=== PATIENT | male | born 1950 ===

== ENCOUNTER 2021-03-15 20:53 | Emergency (ER) | payer MEDICARE ==
[~2021-03-15 20:53] MED LIST: ADENOSINE 6 MG/2 ML INJ ONE; ATROPINE 0.1% (1 MG/10 ML) CARDIAC SYRINGE ONE; CALCIUM CHLORIDE 1,000 MG/10 ML SDV ONE; DOPamine/D5W 800 MG/250 ML DRIP IV ONE; EPINEPHrine 1 MG/10 ML SYRINGE ONE; NALOXONE 2 MG/2 ML INJ ONE; SODIUM BICARB 8.4% 50 MEQ/50 ML SYRINGE IV ONE
[2021-03-15] MEDS ORDERED: MIDAZOLAM 5 MG/5 ML INJ MDV IV ONE (20:57)
[2021-03-15] MEDS ORDERED: ROCURONIUM 50 MG/5 ML INJ IV ONE ×2 (20:57→21:01)
[2021-03-15] MEDS ORDERED: SODIUM CHLORIDE 0.9% 1000 ML 2,000 ML ONE (20:57)
--- NOTE | 2021-03-15 22:32 | Emergency Department Report ---
ED General Adult HPI - General Stated complaint: UNRESPONSIVE Source: EMS - History of Present Illness Initial comments: Patient presents to the emergency department emergently via EMS. Per EMS they were called to [facility] for patient who was unresponsive. Upon their arrival the patient was found to be cool to touch and was breathing at approximately 6 breaths per minute with a blood pressure systolically in the 70s. Upon arrival to the emergency department the patient was not responsive to verbal or painful stimuli. -: unknown Severity scale (0 -10): 0 Consistency: constant Improves with: none Worsens with: none Associated Symptoms: denies other symptoms Treatments Prior to Arrival: none ED Review of Systems ROS: Stated complaint: UNRESPONSIVE Other details as noted in HPI Comment: Unobtainable due to pts medical conditions ED Physical Exam - General General appearance: obtunded - Head Head exam: Present: atraumatic, normocephalic - Eye Eye exam: Present: normal appearance, other (Pupils dilated without response to direct or indirect lighting) - ENT ENT exam: Present: mucous membranes dry - Neck Neck exam: Present: normal inspection - Respiratory Respiratory exam: Present: other (Patient has decreased breath sounds throughout with a respiratory rate of approximately 6 breaths/min; no gag reflex) - Cardiovascular Cardiovascular Exam: Present: bradycardia - GI/Abdominal GI/Abdominal exam: Present: soft, distended - Extremities Exam Extremities exam: Present: normal inspection, other (Contracture of the left upper scrimmaging) - Neurological Exam Neurological exam: Present: other (Obtunded and not responsive to stimuli including verbal and painful) - Psychiatric Psychiatric exam: Present: other (Not able to assess due to the patient's condition) - Skin Skin exam: Present: warm, dry, intact, normal color - Intubation Sedative: other (none) Paralytic: other (none) Laryngoscope: fiberoptic video scope Size: 4 ET Tube Size: 7.5 Tube Secured Depth (cm): 23 Tube Secured Location: lips Tube Placement Confirmation: visualized tube passing t, equal breath sounds bilat, no breath sounds over epi, confirmation by capnometr Patient Tolerated Procedure: well Intubation Complications: none - IO Right Tibia Consent Obtained: emergent situation IO Instrument Used to Penetrate the Cortex: battery powered IO drill Patient Tolerated Procedure: well, no complications Complications: none ED Medical Decision Making - Lab Data Lab Results 03/15/21 Range/Units 21:07 POC Glucose 142 H (70-105) mg/dL - Medical Decision Making Initially the patient had a bradycardic rhythm and was given atropine with his heart rate increasing to approximately 58 bpm Peripheral IV access was attempted with the final IV been placed into the right EJ At the placement of the patient's EJ pulse was rechecked and the patient was pulseless ACLS protocol followed please see code sheet Time of is 2110 Central line was attempted in the right femoral vein emergently to no avail this was done under ultrasound guidance Contacted the patient's son who was informed of the patient's . The patient's son will come to the ED for visitation Critical care attestation.: If time is entered above; I have spent that time in minutes in the direct care of this critically ill patient, excluding procedure time. ED Disposition Clinical Impression: Cardiac arrest Disposition: 20 Is pt being admited?: No Does the pt Need Aspirin: No Condition: Stable
== END 2021-03-16 03:05 ==
LOC: ED 20:53
DX: I46.9 Cardiac arrest, cause unspecified (principal)
CPT/HCPCS: 31500; 36569; 82962; 99285; J0153; J0171; J0461; J1265; J2250; J2310; J7030